=== PATIENT | female | born 1950 | race Two or more races ===

== ENCOUNTER 2019-12-11 12:01 | Emergency (ER) | payer OTHER ==
[~2019-12-11] VITALS: Ht 165.1 cm; Wt 59.0 kg
[2019-12-11] MEDS ORDERED: PRILOSEC OTC20 MG (12:17)
[2019-12-11] MEDS ORDERED: ASPIR 8181 MG (12:17)
[2019-12-11] MEDS ORDERED: LIPITOR20 MG (12:18)
== END 2019-12-11 14:03 | disposition home or self-care (01) ==
LOC: ER 12:01
DX: S22.31XA Fracture of one rib, right side, initial encounter for closed fracture (principal); W18.09XA Striking against other object with subsequent fall, initial encounter; Y93.89 Activity, other specified; Y92.018 Other place in single-family (private) house as the place of occurrence of the external cause; Y99.8 Other external cause status

== ENCOUNTER 2024-06-04 16:10 | Inpatient (IN) | payer OTHER ==
[~2024-06-04] VITALS: Ht 162.6 cm; Wt 44.5 kg
[~2024-06-04 16:10] MED LIST: ASPIR 8181 MG; LIPITOR20 MG; PRILOSEC OTC20 MG
--- NOTE | 2024-06-04 16:31 | NUR ---
SE RECIBE PTE ALERTA EN COMPANIA DE FAMILIAR Y CUIDADORA EN AMBULANCIA POR FALTA DE APETITO YA QUE PTE TIENE MARLEE INFECCION EN LAS ENCIAS.PTE CANALIZADA EN BRAZO LT CON .9NSS PATENTE Y AASHISH DE EDEMA.
--- NOTE | 2024-06-04 16:36 | NUR ---
PTE CON ULCERA SACRAL YA TRATADA EN EL HOGAR.
[2024-06-04] MEDS ORDERED: MULTIVIT INFUSN,ADULT 4,VIT K 10 ML VIAL IV ONE (16:45)
[2024-06-04] MEDS ORDERED: FAMOtidine 10 MG/ML (4ML VIAL) IV ONE (16:45)
[2024-06-04] MEDS ORDERED: 0.9 % SODIUM CHLORIDE 1,000 ML IV ONE (16:45)
--- NOTE | 2024-06-04 17:17 | NUR ---
SE ORIENTA FAMILIAR SOBRE TX MEDICO EL CUAL REFIERE ENTENDER.SE LE EXTRAEN MUESTRAS BAJO MEDIDAS ASEPTICAS.SE ADMINSTRAN MEDICAMENTOS CELSA ORDEN MEDICA.SE CATETERIZA PARA IRIS DE UA Y UC.
[2024-06-04 17:27] LABS: HEMATOCRIT 31.8 % (36.0-45.00); HEMOGLOBIN 10.1 g/dL (12.0-15.00); MEAN CELL VOLUME 75.6 fL (80.00-100.00); MEAN CORPUSCULAR HEMOGLOBIN 23.9 pg (27.00-32.0); MEAN CORPUSCULAR HGB CONC 31.6 g/dl (32.0-36.0); PLATELET COUNT 445 K/uL (150-450); RED BLOOD COUNT 4.21 M/uL (4.00-6.00); RED CELL DISTRIBUTION WIDTH 16.1 % (11.5-14.5)
[2024-06-04 17:30] LABS: ERYTHROCYTE SEDIMENTATION RATE > 130 mm/hr
[2024-06-04 17:44] LABS: URINE APPEARANCE Cloudy; URINE BILIRRUBIN Negative (NEGATIVE); URINE BLOOD Negative; URINE COLOR Yellow; URINE GLUCOSE Negative (NEGATIVE); URINE KETONE Negative (NEGATIVE); URINE LEUKOCYTE Moderate; URINE NITRATE Positive; URINE PROTEIN Negative (NEGATIVE)
[2024-06-04 17:47] LABS: URINE EPITHELIAL CELLS 13.7 uL (0.0-38.8); URINE RBC 10.9 uL (0.0-20.8); URINE WBC 295.1 uL (0.0-23.2)
[2024-06-04 17:54] LABS: BILIRUBIN TOTAL 0.41 mg/dL (0.3-1.2); BILIRUBIN,CONJUGATED 0.15 mg/dL (0.0-0.2); BILIRUBIN,UNCONJUGATED 0.26 mg/dL (0.0-0.6); CALCIUM 9.2 mg/dL (8.5-10.1); CREATININE SERUM 0.51 mg/dL (0.55-1.02); GFR 117.88; GLOBULINA 4.6 G/DL (2.4-3.5); POTASSIUM 3.87 mEq/L (3.5-5.1); TOTAL PROTEIN 6.6 gm/dL (6.4-8.2)
[2024-06-04 18:04] LABS: URINE BACTERIA > 9821.5 uL (0.0-1933); URINE CAST 0.76 uL (0.0-1.40)
[2024-06-04 18:05] LABS: URINE MUCUS SCANT
[2024-06-04 18:08] LABS: C-REACTIVE PROTEIN 15.3 MG/DL (0.00-0.29)
[2024-06-04] MEDS ORDERED: CEFTRIAXONE SODIUM 1,000 MG VIAL IV ONE (21:30)
[2024-06-04] MEDS ORDERED: CLINDAMYCIN PHOSPHATE 150 MG/ML (600mg) IV ONE (21:30)
[2024-06-04] MEDS ORDERED: FAMOTIDINE/PF 20 MG in 0.9 % SODIUM CHLORIDE 8 ML IV PUSH SCH (22:45)
[2024-06-04] MEDS ORDERED: SODIUM CHLORIDE 0.45 % 1,000 ML IV SCH (22:45)
[2024-06-04] MEDS ORDERED: ONDANSETRON HCL 4 MG in 0.9 % SODIUM CHLORIDE 50 ML IV PRN (22:45)
[2024-06-04] MEDS ORDERED: ACETAMINOPHEN 500 MG GEL..CAP PO PRN (22:45)
[2024-06-05] MEDS ORDERED: CEFEPIME HCL 2,000 MG in DEXTROSE 5 % IN WATER 100 ML IV SCH (01:00)
[2024-06-05 02:58] LABS: PHOSPHOROUS 3.1 mg/dL (2.5-4.9)
[2024-06-05 03:00] LABS: INR 1.09; PARTIAL THROMBOPLASTIN TIME 27.6 SECONDS (22.0-34.0); PROTHROMBIN TIME 11.8 SECONDS (9.0-11.5)
[2024-06-05 03:16] LABS: C-REACTIVE PROTEIN 13.5 MG/DL (0.00-0.29)
[2024-06-05 03:43] VITALS: BP 101/53; O2SAT 95
[2024-06-05 08:37] VITALS: BP 95/55; O2SAT 97
[2024-06-05] MEDS ORDERED: ENOXAPARIN SODIUM 40 MG/0.4 ML SYRINGE SUBCUTANEO SCH (09:00)
[2024-06-05] MEDS ORDERED: VANCOMYCIN HCL 1,000 MG VIAL IV SCH (09:00)
[2024-06-05 13:45] VITALS: BP 144/77; O2SAT 97
[2024-06-05 17:03] VITALS: BP 140/66
[2024-06-05] MEDS ORDERED: MEROPENEM 500 MG/VIAL VIAL IV SCH (18:00)
[2024-06-05] MEDS ORDERED: VANCOMYCIN HCL 5 MG/ML REDILUIDO IV SCH (21:00)
[2024-06-05 21:15] VITALS: BP 105/52
[2024-06-06 02:58] VITALS: BP 125/62
[2024-06-06 07:58] LABS: HEMATOCRIT 26.7 % (36.0-45.00); MEAN CELL VOLUME 74.7 fL (80.00-100.00); MEAN CORPUSCULAR HGB CONC 32.7 g/dl (32.0-36.0); PLATELET COUNT 400 K/uL (150-450); RED BLOOD COUNT 3.57 M/uL (4.00-6.00); RED CELL DISTRIBUTION WIDTH 15.6 % (11.5-14.5)
[2024-06-06 08:15] LABS: ALBUMIN 1.8 gm/dL (3.4-5.0); BILIRUBIN TOTAL 0.58 mg/dL (0.3-1.2); CALCIUM 8.5 mg/dL (8.5-10.1); CREATININE SERUM 0.3 mg/dL (0.55-1.02); GFR 217.46; GLOBULINA 3.5 G/DL (2.4-3.5); MAGNESIUM 1.8 mg/dL (1.8-2.4); PHOSPHOROUS 3.4 mg/dL (2.5-4.9); POTASSIUM 3.62 mEq/L (3.5-5.1); TOTAL PROTEIN 5.3 gm/dL (6.4-8.2)
[2024-06-06 08:33] LABS: MEAN CORPUSCULAR HEMOGLOBIN 24.3 pg (27.00-32.0)
[2024-06-06 08:34] LABS: HEMOGLOBIN 8.7 g/dL (12.0-15.00)
[2024-06-06 08:46] LABS: C-REACTIVE PROTEIN 11.2 MG/DL (0.00-0.29)
[2024-06-06] MEDS ORDERED: VANCOMYCIN HCL 5 MG/ML REDILUIDO IV SCH (09:00)
[2024-06-06 09:08] VITALS: BP 115/65; O2SAT 98
[2024-06-06 15:47] VITALS: BP 158/66; O2SAT 99
[2024-06-07 01:44] VITALS: BP 156/87; O2SAT 95
[2024-06-07 08:56] VITALS: BP 107/65; BP 137/77; O2SAT 97; O2SAT 98
[2024-06-08] VITALS: BP 119/58; O2SAT 99
[2024-06-08 08:13] VITALS: BP 134/71; O2SAT 98
[2024-06-08] MEDS ORDERED: AMPICILLIN SODIUM/SULBACTAM NA 3,000 MG VIAL IV SCH (14:00)
[2024-06-08 16:26] VITALS: BP 148/70; O2SAT 98
[2024-06-08] MEDS ORDERED: METRONIDAZOLE/SODIUM CHLORIDE 100 ML IV SCH (17:00)
[2024-06-09 00:17] VITALS: BP 131/74; O2SAT 98
[2024-06-09 05:25] VITALS: BP 114/63; O2SAT 99
[2024-06-09 06:17] LABS: HEMOGLOBIN 9.2 g/dL (12.0-15.00); MEAN CELL VOLUME 74.5 fL (80.00-100.00); MEAN CORPUSCULAR HEMOGLOBIN 24.5 pg (27.00-32.0); MEAN CORPUSCULAR HGB CONC 32.9 g/dl (32.0-36.0); PLATELET COUNT 478 K/uL (150-450); RED BLOOD COUNT 3.76 M/uL (4.00-6.00); RED CELL DISTRIBUTION WIDTH 15.7 % (11.5-14.5)
[2024-06-09 07:00] LABS: ERYTHROCYTE SEDIMENTATION RATE 93 mm/hr
[2024-06-09 07:04] LABS: PH,URINE 5.5 (5.0-8.0); URINE APPEARANCE Clear; URINE BILIRRUBIN Negative (NEGATIVE); URINE BLOOD Negative; URINE COLOR Yellow; URINE GLUCOSE Negative (NEGATIVE); URINE LEUKOCYTE Trace; URINE NITRATE Negative; URINE PROTEIN Trace (NEGATIVE)
[2024-06-09 07:08] LABS: URINE BACTERIA 23.9 uL (0.0-1933); URINE RBC 44.5 uL (0.0-20.8); URINE WBC 30.7 uL (0.0-23.2)
[2024-06-09 07:12] LABS: ALBUMIN 1.9 gm/dL (3.4-5.0); BILIRUBIN TOTAL 0.45 mg/dL (0.3-1.2); CALCIUM 8.1 mg/dL (8.5-10.1); CREATININE SERUM 0.32 mg/dL (0.55-1.02); GFR 201.85; GLOBULINA 3.3 G/DL (2.4-3.5); MAGNESIUM 1.7 mg/dL (1.8-2.4); PHOSPHOROUS 2.1 mg/dL (2.5-4.9); POTASSIUM 3.32 mEq/L (3.5-5.1); TOTAL PROTEIN 5.2 gm/dL (6.4-8.2)
[2024-06-09 07:16] LABS: C-REACTIVE PROTEIN 4.57 MG/DL (0.00-0.29)
[2024-06-09 07:30] LABS: URINE CAST 0.45 uL (0.0-1.40); URINE KETONE 80 (NEGATIVE)
[2024-06-09 08:28] VITALS: BP 115/64
[2024-06-09] MEDS ORDERED: MAGNESIUM SULFATE IN WATER 50 ML IV NR (10:00)
[2024-06-09] MEDS ORDERED: POTASSIUM CHLORIDE 20MEQ/100ML H2O PB IV NR (12:00)
[2024-06-09] MEDS ORDERED: NAPH,MB-DB/K PH,MBDB 1 PKT PACKET PO SCH (13:00)
[2024-06-09 16:39] VITALS: BP 109/66; O2SAT 98
[2024-06-10 00:35] VITALS: BP 126/76; O2SAT 97
[2024-06-10 05:33] LABS: GFR 235.49; POTASSIUM 3.31 mEq/L (3.5-5.1)
[2024-06-10 05:36] LABS: CREATININE SERUM 0.28 mg/dL (0.55-1.02)
[2024-06-10 08:42] VITALS: BP 140/77
[2024-06-10] MEDS ORDERED: POTASSIUM CHLORIDE IN WATER 100 ML IV SCH (09:32)
[2024-06-10 16:31] VITALS: BP 117/73; O2SAT 96
[2024-06-11 02:38] VITALS: BP 102/63; O2SAT 97
[2024-06-11 07:20] VITALS: BP 115/64
[2024-06-11 08:14] LABS: GFR 311.05; POTASSIUM 3.6 mEq/L (3.5-5.1)
[2024-06-11 08:25] LABS: CREATININE SERUM 0.22 mg/dL (0.55-1.02)
[2024-06-11 16:00] VITALS: BP 99/48
[2024-06-11 23:56] VITALS: BP 109/65; O2SAT 98
[2024-06-12 08:48] VITALS: BP 118/66; O2SAT 97
[2024-06-12 14:25] LABS: HEMATOCRIT 30.8 % (36.0-45.00); HEMOGLOBIN 10.2 g/dL (12.0-15.00); MEAN CELL VOLUME 73.9 fL (80.00-100.00); MEAN CORPUSCULAR HEMOGLOBIN 24.4 pg (27.00-32.0); PLATELET COUNT 453 K/uL (150-450); RED BLOOD COUNT 4.17 M/uL (4.00-6.00); RED CELL DISTRIBUTION WIDTH 16.1 % (11.5-14.5)
[2024-06-12 14:52] LABS: ALBUMIN 1.9 gm/dL (3.4-5.0); BILIRUBIN TOTAL 0.34 mg/dL (0.3-1.2); CALCIUM 8.3 mg/dL (8.5-10.1); CREATININE SERUM 0.19 mg/dL (0.55-1.02); GFR 368.39; GLOBULINA 3.4 G/DL (2.4-3.5); POTASSIUM 4.42 mEq/L (3.5-5.1); TOTAL PROTEIN 5.3 gm/dL (6.4-8.2)
[2024-06-12 17:06] VITALS: BP 122/66
[2024-06-13 00:06] VITALS: BP 118/59
[2024-06-13 08:19] VITALS: BP 132/73; O2SAT 97
[2024-06-13 18:59] VITALS: BP 141/58
[2024-06-14 02:30] VITALS: BP 130/70; O2SAT 100
[2024-06-14 08:48] VITALS: BP 155/84; O2SAT 95
[2024-06-14 17:19] VITALS: BP 151/63
[2024-06-15 02:15] VITALS: BP 111/74; BP 112/71; O2SAT 95; O2SAT 97
[2024-06-15 08:09] VITALS: BP 109/71
[2024-06-15 16:14] VITALS: BP 94/59; O2SAT 98
[2024-06-15 20:00] VITALS: BP 104/64; O2SAT 97
[2024-06-16 02:13] VITALS: BP 111/65; O2SAT 97
[2024-06-16 09:11] VITALS: BP 89/45; O2SAT 100
[2024-06-16 15:32] LABS: ERYTHROCYTE SEDIMENTATION RATE 95 mm/hr; HEMATOCRIT 31.6 % (36.0-45.00); HEMOGLOBIN 10.5 g/dL (12.0-15.00); MEAN CELL VOLUME 73.3 fL (80.00-100.00); MEAN CORPUSCULAR HEMOGLOBIN 24.3 pg (27.00-32.0); MEAN CORPUSCULAR HGB CONC 33.2 g/dl (32.0-36.0); PLATELET COUNT 474 K/uL (150-450); RED BLOOD COUNT 4.31 M/uL (4.00-6.00); RED CELL DISTRIBUTION WIDTH 16.3 % (11.5-14.5)
[2024-06-16 15:49] LABS: BILIRUBIN TOTAL 0.3 mg/dL (0.3-1.2); CALCIUM 8.6 mg/dL (8.5-10.1); CREATININE SERUM 0.33 mg/dL (0.55-1.02); GFR 194.81; GLOBULINA 3.3 G/DL (2.4-3.5); MAGNESIUM 1.8 mg/dL (1.8-2.4); PHOSPHOROUS 2.5 mg/dL (2.5-4.9); POTASSIUM 4.27 mEq/L (3.5-5.1); TOTAL PROTEIN 5.3 gm/dL (6.4-8.2)
[2024-06-16 15:50] LABS: C-REACTIVE PROTEIN 1.42 MG/DL (0.00-0.29)
[2024-06-16 16:29] VITALS: BP 97/62; O2SAT 94
[2024-06-17 03:01] VITALS: BP 125/68; O2SAT 98
[2024-06-17 08:40] VITALS: BP 99/51; O2SAT 97
== END 2024-06-17 14:54 | disposition home or self-care (01) | DRG 872 ==
LOC: ER 16:10 → SURG 22:46 → MEDI 06-05 13:03
PROVIDERS: General Practice; Internal Medicine; Internal Medicine Infectious Disease; ADMIT Internal Medicine; ATTEND Internal Medicine
PROC: BN25ZZZ Computerized Tomography (CT Scan) of Facial Bones (ICD-10-PCS; 2024-06-04)
PROC: BW2FYZZ Computerized Tomography (CT Scan) of Neck using Other Contrast (ICD-10-PCS; 2024-06-04)
PROC: BR39ZZZ Magnetic Resonance Imaging (MRI) of Lumbar Spine (ICD-10-PCS; 2024-06-10)
PROC: 0D9680Z Drainage of Stomach with Drainage Device, Via Natural or Artificial Opening Endoscopic (ICD-10-PCS; principal; 2024-06-11)
PROC: 3E0G76Z Introduction of Nutritional Substance into Upper GI, Via Natural or Artificial Opening (ICD-10-PCS; 2024-06-11)
PROC: 0HB6XZZ Excision of Back Skin, External Approach (ICD-10-PCS; 2024-06-11)
DX: A41.9 Sepsis, unspecified organism (principal); E46 Unspecified protein-calorie malnutrition; R64 Cachexia; M86.9 Osteomyelitis, unspecified; E87.0 Hyperosmolality and hypernatremia; N39.0 Urinary tract infection, site not specified; Z68.1 Body mass index [BMI] 19.9 or less, adult; L89.159 Pressure ulcer of sacral region, unspecified stage
CPT/HCPCS: 72148

== ENCOUNTER 2024-06-19 13:07 | Inpatient (IN) | payer OTHER ==
[~2024-06-19] VITALS: Ht 157.5 cm; Wt 44.9 kg
--- NOTE | 2024-06-19 13:26 | NUR ---
PACIENTE ALERTA ACOMPANAD DE PERSONAL DE AMBULANCIA QUIENES REFIEREN PACIENTE ES TRAIDA A ER DEBIDO A QUE SE REMOVIO TUBO NASOGASTRICO.
[2024-06-19] MEDS ORDERED: 0.9 % SODIUM CHLORIDE 500 ML IV ONE (14:45)
[2024-06-19 16:12] LABS: HEMATOCRIT 33.8 % (36.0-45.00); HEMOGLOBIN 10.9 g/dL (12.0-15.00); MEAN CELL VOLUME 75.4 fL (80.00-100.00); MEAN CORPUSCULAR HEMOGLOBIN 24.4 pg (27.00-32.0); MEAN CORPUSCULAR HGB CONC 32.3 g/dl (32.0-36.0); PLATELET COUNT 446 K/uL (150-450); RED BLOOD COUNT 4.48 M/uL (4.00-6.00); RED CELL DISTRIBUTION WIDTH 16.9 % (11.5-14.5)
[2024-06-19 16:26] LABS: PH,URINE 7.5 (5.0-8.0); URINE APPEARANCE Cloudy; URINE BILIRRUBIN Negative (NEGATIVE); URINE BLOOD Negative; URINE COLOR Yellow; URINE GLUCOSE Negative (NEGATIVE); URINE KETONE Negative (NEGATIVE); URINE LEUKOCYTE Large; URINE NITRATE Positive; URINE PROTEIN Negative (NEGATIVE)
[2024-06-19 16:27] LABS: INR 1.05; PARTIAL THROMBOPLASTIN TIME 24.8 SECONDS (22.0-34.0); PROTHROMBIN TIME 11.4 SECONDS (9.0-11.5)
[2024-06-19 16:30] LABS: URINE EPITHELIAL CELLS 16.3 uL (0.0-38.8); URINE RBC 71.5 uL (0.0-20.8); URINE WBC 789.4 uL (0.0-23.2)
[2024-06-19 16:33] LABS: ALBUMIN 2.4 gm/dL (3.4-5.0); BILIRUBIN TOTAL 0.36 mg/dL (0.3-1.2); CALCIUM 8.8 mg/dL (8.5-10.1); CREATININE SERUM 0.42 mg/dL (0.55-1.02); GFR 147.49; GLOBULINA 3.6 G/DL (2.4-3.5); POTASSIUM 4.33 mEq/L (3.5-5.1)
[2024-06-19 16:59] LABS: URINE BACTERIA > 9821.5 uL (0.0-1933); URINE CAST 0.73 uL (0.0-1.40)
[2024-06-19 17:05] LABS: URINE CRYSTALS MODERATE /HPF; URINE YEAST LOADED /hpf
--- NOTE | 2024-06-19 17:21 | NUR ---
SE EDUCA A PACIENTE SOBRE TRATAMIENTO MEDICO SOLICITADO POR MD EN TUR[place], LA MISMA REFIERE ENTENDER Y SE PROCEDE A FLORIAN MUESTRAS Y ADMINISTRAR MEDICAMENTO CELSA ORDEN MEDICA.
[2024-06-19] MEDS ORDERED: PIPERACILLIN/TAZOBACTAM SODIUM 3.375 GM in DEXTROSE 5 % IN WATER 100 ML IV SCH (18:38)
[2024-06-19] MEDS ORDERED: ACETAMINOPHEN 500 MG GEL..CAP PO PRN (18:45)
[2024-06-19] MEDS ORDERED: SODIUM CHLORIDE 0.45 % 1,000 ML IV SCH (18:45)
[2024-06-20] MEDS ORDERED: FAMOTIDINE/PF 20 MG in 0.9 % SODIUM CHLORIDE 8 ML IV PUSH SCH (09:00)
[2024-06-20] MEDS ORDERED: ATORVASTATIN CALCIUM 20 MG TABLET PO SCH (09:00)
[2024-06-20] MEDS ORDERED: FLUCONAZOLE IN NACL,ISO-OSM 200 MG/100 ML PIGGYBAG IV STA (10:08)
[2024-06-20 12:15] VITALS: BP 99/57; O2SAT 98
[2024-06-20 20:46] VITALS: BP 100/60; O2SAT 93
[2024-06-20 21:55] VITALS: BP 91/53; O2SAT 96
[2024-06-21 02:01] VITALS: BP 98/57; O2SAT 97
[2024-06-21] MEDS ORDERED: FLUCONAZOLE IN NACL,ISO-OSM 50 ML IV SCH (09:00)
[2024-06-21] MEDS ORDERED: FLUCONAZOLE IN NACL,ISO-OSM 2 MG/ML ML IV SCH (09:00)
[2024-06-21 09:34] VITALS: BP 90/53; O2SAT 97
[2024-06-21 18:24] VITALS: BP 98/58; O2SAT 96
[2024-06-22 00:53] VITALS: BP 120/67; O2SAT 98
[2024-06-22 10:17] VITALS: BP 105/52; O2SAT 94
[2024-06-22] MEDS ORDERED: SODIUM HYPOCHLORITE 1OZ TOP SCH (10:51)
[2024-06-22 17:27] VITALS: BP 125/63; O2SAT 96
[2024-06-23 01:19] VITALS: BP 122/65; O2SAT 100
[2024-06-23 03:41] LABS: PH,URINE 5.5 (5.0-8.0); URINE APPEARANCE Clear; URINE BILIRRUBIN Negative (NEGATIVE); URINE BLOOD Trace; URINE COLOR Yellow; URINE GLUCOSE Negative (NEGATIVE); URINE LEUKOCYTE Small; URINE NITRATE Negative; URINE PROTEIN Negative (NEGATIVE); URINE UROBILINOGEN 0.2 E.U./dl
[2024-06-23 03:45] LABS: URINE BACTERIA 88.1 uL (0.0-1933); URINE RBC 15.4 uL (0.0-20.8); URINE WBC 72.4 uL (0.0-23.2)
[2024-06-23 04:50] LABS: URINE CAST 0.58 uL (0.0-1.40); URINE KETONE 40 (NEGATIVE)
[2024-06-23 08:40] VITALS: BP 108/57; O2SAT 97
[2024-06-23] MEDS ORDERED: SODIUM HYPOCHLORITE 1OZ TOP SCH (09:00)
[2024-06-23 17:48] VITALS: BP 123/78
[2024-06-24 06:34] LABS: ALBUMIN 2.3 gm/dL (3.4-5.0); BILIRUBIN TOTAL 0.63 mg/dL (0.3-1.2); CALCIUM 8.5 mg/dL (8.5-10.1); GFR 295.5; GLOBULINA 3.5 G/DL (2.4-3.5); POTASSIUM 3.06 mEq/L (3.5-5.1); TOTAL PROTEIN 5.8 gm/dL (6.4-8.2)
[2024-06-24 06:39] LABS: HEMATOCRIT 31.1 % (36.0-45.00); HEMOGLOBIN 10.3 g/dL (12.0-15.00); MEAN CELL VOLUME 74.2 fL (80.00-100.00); MEAN CORPUSCULAR HEMOGLOBIN 24.6 pg (27.00-32.0); MEAN CORPUSCULAR HGB CONC 33.1 g/dl (32.0-36.0); PLATELET COUNT 380 K/uL (150-450); RED BLOOD COUNT 4.19 M/uL (4.00-6.00); RED CELL DISTRIBUTION WIDTH 17.7 % (11.5-14.5)
[2024-06-24 06:54] LABS: CREATININE SERUM 0.23 mg/dL (0.55-1.02)
[2024-06-24] MEDS ORDERED: DEXTROSE 5 % IN WATER 100 ML IV STA (07:14)
[2024-06-24] MEDS ORDERED: DEXTROSE 50 % IN WATER 0.5 G/ML DISP.SYRIN IV ONE (08:45)
[2024-06-24] MEDS ORDERED: DEXTROSE 5 %-0.45 % SOD CHLORD 1,000 ML IV SCH (10:00)
[2024-06-24 10:27] VITALS: BP 119/50; O2SAT 97
[2024-06-24] MEDS ORDERED: POTASSIUM CHLORIDE IN WATER 40 MEQ/100 ML PIGGYBAG IV SCH (12:00)
[2024-06-24 16:00] VITALS: BP 139/76; O2SAT 100
[2024-06-24] MEDS ORDERED: LIDOCAINE HCL 1%/EPINEPHRINE 20ML VIAL IJ ONE (21:15)
[2024-06-24] MEDS ORDERED: BUPIVACAINE HCL 30 ML VIAL IJ ONE (21:15)
[2024-06-25 08:50] VITALS: BP 165/74; O2SAT 99
[2024-06-25 13:52] LABS: CALCIUM 9.1 mg/dL (8.5-10.1); CREATININE SERUM 0.33 mg/dL (0.55-1.02); GFR 194.81; POTASSIUM 3.4 mEq/L (3.5-5.1)
[2024-06-25 18:26] VITALS: BP 133/79
[2024-06-26 01:09] VITALS: BP 113/73; O2SAT 96
[2024-06-26 08:41] VITALS: BP 110/57; O2SAT 97
[2024-06-26 10:24] VITALS: BP 110/57
[2024-06-26 18:03] VITALS: BP 126/73; O2SAT 99
== END 2024-06-26 19:59 | disposition home or self-care (01) | DRG 690 ==
LOC: ER 13:07 → SEC-K 19:33 → MEDI 19:33
PROVIDERS: Internal Medicine Infectious Disease; Nurse Practitioner Family; Surgery; ADMIT Internal Medicine; ATTEND Internal Medicine
PROC: 0DH60UZ Insertion of Feeding Device into Stomach, Open Approach (ICD-10-PCS; principal; 2024-06-24 20:45)
DX: N39.0 Urinary tract infection, site not specified (principal); R13.19 Other dysphagia; L89.159 Pressure ulcer of sacral region, unspecified stage; F03.90 Unspecified dementia, unspecified severity, without behavioral disturbance, psychotic disturbance, mood disturbance, and anxiety; R63.0 Anorexia

== ENCOUNTER 2024-07-06 11:05 | Inpatient (IN) | payer OTHER ==
[~2024-07-06] VITALS: Ht 152.4 cm; Wt 45.4 kg
--- NOTE | 2024-07-06 11:38 | NUR ---
PTE ALERTA Y ORIENTADA X3 EN COMPANIA DE PARAMEDICOS Y FAMILIAR QUIENES REFIEREN QUE DR. SURINDER VALENCIA LE COLOCO UN PEG HACE DOS FOX Y REFIEREN QUE EL MISMO SE LE SALIO, SE CHINYERE SV Y UBICA
--- NOTE | 2024-07-06 13:39 | NUR ---
PTE ALERTA Y ACTIVA EN COMPANIA DE FAMILIAR SE EDUCA A FAMILIAR SO9BRE IRIS DE MEUSTAR ORDENADAS POR MD, CHRIS Y PTE REFIERE ENTENDER. SE REALIZA IRIS DE MUESTRAS BAJO MEDIDAS ASEPTICAS
[2024-07-06 13:41] LABS: HEMATOCRIT 41.6 % (36.0-45.00); HEMOGLOBIN 13.4 g/dL (12.0-15.00); MEAN CORPUSCULAR HEMOGLOBIN 24.5 pg (27.00-32.0); MEAN CORPUSCULAR HGB CONC 32.3 g/dl (32.0-36.0); PLATELET COUNT 304 K/uL (150-450); RED BLOOD COUNT 5.47 M/uL (4.00-6.00); RED CELL DISTRIBUTION WIDTH 18.6 % (11.5-14.5)
[2024-07-06 14:01] LABS: PH,URINE 5.5 (5.0-8.0); URINE APPEARANCE Turbid; URINE BILIRRUBIN Negative (NEGATIVE); URINE BLOOD Small; URINE CAST 2.35 uL (0.0-1.40); URINE COLOR Yellow; URINE GLUCOSE Negative (NEGATIVE); URINE KETONE Negative (NEGATIVE); URINE LEUKOCYTE Large; URINE NITRATE Negative; URINE PROTEIN Trace (NEGATIVE); URINE RBC 104.7 uL (0.0-20.8); URINE UROBILINOGEN 0.2 E.U./dl; URINE WBC 639.5 uL (0.0-23.2)
[2024-07-06 14:08] LABS: INR 1.11; PARTIAL THROMBOPLASTIN TIME 21.2 SECONDS (22.0-34.0)
[2024-07-06 14:44] LABS: ALBUMIN 2.9 gm/dL (3.4-5.0); BILIRUBIN TOTAL 0.81 mg/dL (0.3-1.2); CALCIUM 10.1 mg/dL (8.5-10.1); CREATININE SERUM 0.53 mg/dL (0.55-1.02); GFR 112.76; GLOBULINA 4.3 G/DL (2.4-3.5); POTASSIUM 4.32 mEq/L (3.5-5.1); TOTAL PROTEIN 7.2 gm/dL (6.4-8.2)
[2024-07-06 14:49] LABS: URINE BACTERIA > 9821.5 uL (0.0-1933)
[2024-07-06 14:50] LABS: URINE YEAST FEW /hpf
--- NOTE | 2024-07-06 15:12 | NUR ---
SE NOTIFICA ESTUDIO DE CT PO PENDIENTE A REALIZAR.
[2024-07-06] MEDS ORDERED: DIATRIZOATE MEGLUMINE, SODIUM 30 ML BOTTLE PO ONE (15:15)
[2024-07-06] MEDS ORDERED: PIPERACILLIN/TAZOBACTAM SODIUM 3.375 GM in DEXTROSE 5 % IN WATER 100 ML IV SCH (18:54)
[2024-07-06] MEDS ORDERED: ACETAMINOPHEN 500 MG GEL..CAP PO PRN (19:00)
[2024-07-06] MEDS ORDERED: DEXTROSE 5 %-0.45 % SOD CHLORD 1,000 ML IV SCH (19:00)
[2024-07-06 22:52] VITALS: BP 116/80; O2SAT 97
[2024-07-07 00:44] VITALS: BP 113/76; O2SAT 98
[2024-07-07] MEDS ORDERED: ENOXAPARIN SODIUM 40 MG/0.4 ML SYRINGE SUBCUTANEO SCH (09:00)
[2024-07-07] MEDS ORDERED: FAMOTIDINE/PF 20 MG in 0.9 % SODIUM CHLORIDE 8 ML IV PUSH SCH (09:00)
[2024-07-07 09:47] VITALS: BP 124/78; O2SAT 96
[2024-07-07] MEDS ORDERED: LIDOCAINE HCL 1% 10ML VIAL IJ ONE (13:45)
[2024-07-07] MEDS ORDERED: BUPIVACAINE HCL 30 ML VIAL IJ ONE (13:45)
[2024-07-07 17:15] VITALS: BP 140/75; O2SAT 98
[2024-07-07] MEDS ORDERED: ONDANSETRON HCL 2 MG/ML VIAL IV ONE (17:15)
[2024-07-07] MEDS ORDERED: CEFEPIME HCL 2,000 MG VIAL IV SCH (21:00)
[2024-07-08 01:21] VITALS: BP 118/82; O2SAT 95
[2024-07-08 07:52] LABS: HEMATOCRIT 36.3 % (36.0-45.00); HEMOGLOBIN 11.8 g/dL (12.0-15.00); MEAN CELL VOLUME 75.6 fL (80.00-100.00); MEAN CORPUSCULAR HEMOGLOBIN 24.6 pg (27.00-32.0); MEAN CORPUSCULAR HGB CONC 32.6 g/dl (32.0-36.0); PLATELET COUNT 310 K/uL (150-450)
[2024-07-08 08:29] LABS: ALBUMIN 2.5 gm/dL (3.4-5.0); BILIRUBIN TOTAL 0.68 mg/dL (0.3-1.2); CALCIUM 8.9 mg/dL (8.5-10.1); CREATININE SERUM 0.34 mg/dL (0.55-1.02); GFR 188.21; GLOBULINA 3.7 G/DL (2.4-3.5); MAGNESIUM 2.2 mg/dL (1.8-2.4); PHOSPHOROUS 2.5 mg/dL (2.5-4.9); POTASSIUM 3.47 mEq/L (3.5-5.1); TOTAL PROTEIN 6.2 gm/dL (6.4-8.2)
[2024-07-08 09:04] VITALS: BP 107/69; O2SAT 98
[2024-07-08 09:34] LABS: C-REACTIVE PROTEIN 6.66 MG/DL (0.00-0.29)
[2024-07-08] MEDS ORDERED: POTASSIUM CHLORIDE 20MEQ/100ML H2O PB IV NR (12:30)
[2024-07-08 18:32] VITALS: BP 121/78; O2SAT 98
[2024-07-09 02:17] VITALS: BP 99/62; O2SAT 95
[2024-07-09 08:01] LABS: CALCIUM 9.2 mg/dL (8.5-10.1); CREATININE SERUM 0.41 mg/dL (0.55-1.02); GFR 151.65; POTASSIUM 3.76 mEq/L (3.5-5.1)
[2024-07-09 08:34] VITALS: BP 130/80; O2SAT 98
== END 2024-07-09 14:37 | disposition home or self-care (01) | DRG 395 ==
LOC: ER 11:05 → MEDJ 19:56
PROVIDERS: General Practice; Internal Medicine Infectious Disease; Surgery; ADMIT Internal Medicine; ATTEND Internal Medicine
PROC: BW21ZZZ Computerized Tomography (CT Scan) of Abdomen and Pelvis (ICD-10-PCS; 2024-07-06)
PROC: 0D20XUZ Change Feeding Device in Upper Intestinal Tract, External Approach (ICD-10-PCS; principal; 2024-07-07 07:15)
DX: K94.23 Gastrostomy malfunction (principal); R13.19 Other dysphagia; Z20.822 Contact with and (suspected) exposure to COVID-19